=== PATIENT | female | born 1970 | race American Indian/Alaskan Native ===

== ENCOUNTER 2017-09-20 08:24 | Outpatient (CLI) | payer OTHER ==
--- NOTE | 2017-09-20 10:38 | Mammography Report ---
Screening mammogram: Routine views are compared to her prior exam in January 2016. The overall breast pattern is heterogeneously dense and symmetrically distributed bilaterally. Several circumscribed nodules are identified in the medial right breast. There is a biopsy clip identified in upper outer nodule. These findings are all unchanged and there are no new findings. CAD used. Impression: Stable exam. No suspicious findings. Recommendation: Annual mammogram followup. BI-RADS CATEGORY: 2 = Benign ACR BI-RADS MAMMOGRAPHIC CODES: 0 = Needs additional imaging evaluation; 1 = Negative; 2 = Benign; 3 = Probably benign; 4 = Suspicious; 5 = Malignant; 6 = Known biopsy-proven malignancy COMMENT: 1. Dense breast tissue, i.e., adenosis, fibrocystic changes, etc., may obscure an underlying neoplasm. 2. Approximately 10% of cancers are not detected with mammography. 3. A negative mammography report should not delay biopsy if a clinically suspicious mass is present.
== END 2017-09-20 08:25 | disposition home or self-care (01) ==
LOC: SPVWC 08:24
PROVIDERS: ATTEND Internal Medicine
DX: Z12.31 Encounter for screening mammogram for malignant neoplasm of breast (principal)
CPT/HCPCS: 77067

== ENCOUNTER 2019-03-27 10:19 | Outpatient (CLI) | payer OTHER ==
--- NOTE | 2019-03-31 10:56 | Mammography Report ---
DIGITAL SCREENING MAMMOGRAM WITH CAD, 03/27/2019 INDICATION: Routine screening mammography. TECHNIQUE: Digital bilateral 2D mammography was obtained in the craniocaudal and mediolateral obliq ue projections. This examination was interpreted with the benefit of Computer-Aided Detection analysi s. COMPARISON: 09/20/2017 and 01/27/2016 FINDINGS: Breast Density: The breasts are heterogeneously dense, which may obscure small masses. A right asymmetry on the CC view requires additional imaging. No architectural distortion or suspicio us calcifications. Stable right upper outer mass with a biopsy clip. Stable right lower inner circums cribed masses. There is no evidence of dominant mass, suspicious calcifications or architectural dist ortion in the left breast. IMPRESSION: Right outer asymmetry requiring additional imaging. Recommend recall for right ML and spo t magnification CC views and right breast ultrasound if needed. Follow up recommendation: Routine yearly Category 0: Incomplete. Needs additional imaging evaluation and/or prior mammograms for comparison. A "normal" or negative report should not discourage follow up or biopsy of a clinically significant f inding. A written summary of these findings will be mailed to the patient. The patient will be entered into a mammography reporting system which will generate a reminder letter for the patient's next appointmen t at the appropriate interval. The [employer] recommends yearly mammograms starting at age 40 and continuing as l henri as a woman is in good health. Breast MRI is recommended for women with an approximate 20-25% or greater lifetime risk of breast cancer, including women with a strong family history of breast or ova umang cancer or who have been treated for Hodgkin's disease. Signer Name: Unruly Sanz MD Signed: 03/31/2019 10:52 AM Workstation Name: [id number]
== END 2019-03-27 10:20 | disposition home or self-care (01) ==
LOC: SPVWC 10:19
PROVIDERS: ATTEND Internal Medicine
DX: Z12.31 Encounter for screening mammogram for malignant neoplasm of breast (principal)
CPT/HCPCS: 77067